=== PATIENT | male | born 1990 | race Caucasian/White ===

== ENCOUNTER 2019-11-15 10:01 | Emergency (ER) | payer BC, SELFPAY ==
[2019-11-15 10:31] VITALS: BP 122/74; PULSE 74; RESP 20; TEMP 36.9; O2SAT 100
--- NOTE | 2019-11-15 10:37 | ED.EXTPRO ---
HPI - Extremity Problem General Chief complaint: Extremity Problem,Nontraumatic Stated complaint: numbness in r/hand Time Seen by Provider: 11/15/19 10:37 Source: patient and RN notes reviewed History of Present Illness HPI Narrative: Patient is a 29-year-old male that presents the urgent care with complaints of right hand wrist pain and numbness intermittently to the pinky. 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 Patient states it started yesterday and he is used ibuprofen. States that the numbness has subsided. Patient denies any known trauma or injury. No other acute complaints. No acute distress noted. Patient read the plan of care. Related Data Home Medications Medication Instructions Recorded Confirmed No Home Medications 11/15/19 11/15/19 Allergies Allergy/AdvReac Type Severity Reaction Status Date / Time No Known Allergies Allergy Mild Verified 11/15/19 10:33 Review of Systems Review of Systems: Narrative: CONSTITUTIONAL: Denies fever, chills, or sweats. EYES: Denies visual changes, redness, or discharge. ENT: Denies rhinorrhea, congestion, sore throat, or otalgia. CARDIOVASCULAR: Denies chest pain, palpitations, or edema. RESPIRATORY: Denies cough or dyspnea. GASTROINTESTINAL: Denies abdominal pain, nausea, vomiting, or diarrhea. GENITOURINARY: Denies dysuria or hematuria. SKIN: Denies rash or itching. MUSCULOSKELETAL: Reports of right wrist pain and numbness intermittently to the right pinky finger NEUROLOGIC: Denies headache, numbness, or weakness. All other systems reviewed are negative, except as documented in HPI. PMFSH Social History Social History Smoking status: Former smoker Smoking end date: 10/12/11 Alcohol intake: current Comments At the time of my signature, I reviewed and agree with the nursing past medical, surgical, social, and family history. There is no relevant family history pertinent to the patient complaint. Exam Narrative: Exam Narrative: GENERAL: This is a well-nourished, well-developed patient, in no apparent distress. HEAD: normocephalic, atraumatic. EYES: PERRL. Sclera clear/white. Vision is grossly intact. EARS: External ears normal NOSE: External nose normal with no obvious nasal discharge THROAT: Mucous membranes moist NECK: Neck supple CARDIOVASCULAR: Regular rate and rhythm without murmurs, gallops, or rubs. RESPIRATORY: Clear to auscultation. Breath sounds equal bilaterally. No wheezes, rales, or rhonchi. SKIN: warm, intact with no suspicious lesions or rash, good texture and turgor. NEURO: awake, alert, and oriented to person, place and time. There were no obvious focal neurologic abnormalities. EXTREMITIES: Positive strong right radial pulse with no obvious deformity, ecchymosis, edema, erythema to the right wrist/hand. Capillary refill less than 2 seconds to right upper extremity. Tinel test negative. Range of motion within normal limits to right upper extremity. Course Vital Signs Vital signs: Vital Signs Temperature 98.4 F 11/15/19 10:31 Pulse Rate 74 11/15/19 10:31 Respiratory Rate 11/15/19 10:31 Blood Pressure 122/74 11/15/19 10:31 Pulse Oximetry 100 11/15/19 10:31 Temperature 98.4 F 11/15/19 10:31 Pulse Rate 74 11/15/19 10:31 Respiratory Rate 11/15/19 10:31 Blood Pressure 122/74 11/15/19 10:31 Pulse Oximetry 100 11/15/19 10:31 Reviewed MDM - Extremity (Nontraumatic) MDM Narrative Medical decision making narrative: Advised the patient to follow-up with the primary care doctor if symptoms persist. May need EMG study to determine nerve conduction. Symptoms are most likely related to ulnar nerve compression/dysfunction/entrapment. Continue to use ibuprofen as needed for pain. May obtain ulnar nerve splint for relief. Follow-up with PCP within 2 to 5 days or for worsening symptoms or failure to improve. Differential Diagnosis Differentia
== END 2019-11-15 11:02 | disposition home or self-care (01) ==
PROVIDERS: Emergency Provider Nurse Practitioner Family
DX: M25.531 Pain in right wrist (principal); Z85.828 Personal history of other malignant neoplasm of skin
CPT/HCPCS: 99211; G0463

== ENCOUNTER 2021-01-20 10:24 | Emergency (ER) | payer BC, SELFPAY ==
--- NOTE | ~2021-01-20 | XR_ITS ---
EXAMINATION: XR clavicle RT EXAM DATE: 01/20/2021 11:09 INDICATION: Initial encounter following injury, with pain of the right clavicle. TECHNIQUE: 2 frontal projections right clavicle with different degrees of tilt. There is no prior s tudy for comparison. FINDINGS: There is right clavicular midshaft acute closed posttraumatic fracture. There is complete shaft width superior displacement, and also probably some amount of foreshortening, bayoneting. No ot her acute findings. IMPRESSION: Right midclavicular shaft fracture with displacement, some retraction. Reviewed, dictated and finalized at location A. IMPRESSION: Right midclavicular shaft fracture with displacement, some retract ion.
[2021-01-20 10:52] VITALS: BP 120/79; PULSE 66; RESP 20; TEMP 36.8; O2SAT 100
[2021-01-20] MEDS: HYDROcodone/acetaminophen (*CRX) 5-325 MG TABLET 1 TAB PO (11:52)
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
== END 2021-01-20 12:39 | disposition home or self-care (01) ==
PROVIDERS: Emergency Provider Emergency Medicine; PCP Family Medicine
DX: S42.021A Displaced fracture of shaft of right clavicle, initial encounter for closed fracture (principal); Z87.891 Personal history of nicotine dependence; V00.841A Fall from standing electric scooter, initial encounter
CPT/HCPCS: 73000; 99284; A4565; A9270

== ENCOUNTER 2021-06-16 03:21 | Emergency (ER) | payer BC, SELFPAY ==
--- NOTE | ~2021-06-16 | XR_ITS ---
EXAMINATION: XR knee LT min 4V DATE: 06/16/2021 03:50 INDICATION: Anterior left knee pain and swelling post fall TECHNIQUE: Anteroposterior, 2 oblique and crosstable lateral views of the left knee were obtained COMPARISON: None. FINDINGS: There is nonuniform oblique lucency extending across the superolateral patella with smooth margins to the bones on either side of the lucency. The lucency measures less than 1 mm at its cephalad aspect increasing to 5 mm at its caudal aspect. The location and appearance favors a normal accessory apophy seal center of a bipartite patella rather than osseous fracture. The asymmetry to the lucency however suggests an avulsion fracture along the synchondrosis similar to a Salter-Ocasio I type fracture tracey ng a physis. Bone alignment is otherwise normal. No other lesions suspicious for fracture identified. Joint spaces are normal with small left knee joint effusion. IMPRESSION: 1. 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 Reviewed, dictated and finalized at location A.
[2021-06-16 03:27] VITALS: BP 139/69; PULSE 94; RESP 17; TEMP 37.3; O2SAT 99
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
[2021-06-16] MEDS: IBUPROFEN 600 MG TABLET PO (03:38)
== END 2021-06-16 04:33 | disposition home or self-care (01) ==
PROVIDERS: Emergency Provider Emergency Medicine; PCP Family Medicine
DX: S82.092A Other fracture of left patella, initial encounter for closed fracture (principal); F17.210 Nicotine dependence, cigarettes, uncomplicated; X58.XXXA Exposure to other specified factors, initial encounter
CPT/HCPCS: 73564; 99283; 99284; A9270

== ENCOUNTER 2022-09-20 02:44 | Emergency (ER) | payer SELFPAY ==
[2022-09-20 02:48] VITALS: BP 117/86; PULSE 83; RESP 16; TEMP 37.1; O2SAT 100
--- NOTE | 2022-09-20 04:03 | PC.NURSE ---
Patient seen walking out of the ED waiting room and outside with visitor by his side. Patient did not answer when asked if he was leaving.
== END 2022-09-20 04:12 | disposition left against medical advice (07) ==
PROVIDERS: PCP Family Medicine
DX: M79.661 Pain in right lower leg (principal)
CPT/HCPCS: 99199

== ENCOUNTER 2024-07-07 16:03 | Emergency (ER) | payer BC, SELFPAY ==
[2024-07-07 16:13] VITALS: BP 132/83; PULSE 72; RESP 18; TEMP 36.4; O2SAT 100
--- NOTE | 2024-07-07 16:14 | ED.WOUNDLAC ---
HPI - Wound/Laceration General Chief Complaint: Wound/Laceration Stated Complaint: thumb laceration Time Seen by Provider: 07/07/24 16:14 Source: patient Mode of arrival: ambulatory Limitations: no limitations History of Present Illness HPI narrative: Chavez is a 33-year-old male patient presenting to the clinic today with complaints of a right thumb laceration. He reports he was cutting a sweet potato prior to arrival and avulsed the skin on his distal thumb. Bleeding is controlled. Tetanus status is unknown Related Data Home Medications Medication Instructions Recorded Confirmed dextroamphetamine-amphetamine ER 15 mg PO DAILY 07/07/24 07/07/24 15 mg 24hr capsule,extend release Allergies Allergy/AdvReac Type Severity Reaction Status Date / Time No Known Allergies Allergy Mild Verified 07/07/24 16:34 Review of Systems Review of Systems: Pertinent positives per HPI. Patient denies any fever, chills, rash, headache, visual changes, dizziness, cough, runny nose, sore throat, shortness of breath, chest pain, palpitations, nausea, vomiting, diarrhea, constipation, abdominal pain, or any urinary issues. PMFSH Past Medical History Medical History Anxiety Clavicle fracture, shaft Depression Left patella fracture Skin cancer Surgical History Surgical History History of surgery Skin abnormality removed 2002 Social History Social History Smoking packs per day: 2 Smoking cigarettes per day: 40.0 Years smoked: 4 Smoking pack-years: 8.00 Tobacco type: cigarettes Smoking end date: 10/12/13 Alcohol intake: current Alcohol use details: 4 per month Substance use: never Substance use type: does not use Living arrangements: with family Gender identity (if verbalized by the patient): Male Comments At the time of my signature, I reviewed and agree with the nursing past medical, surgical, social, and family history. There is no relevant family history pertinent to the patient complaint. Exam Narrative: General: Well-developed, well nourished, in no apparent distress Head: Normocephalic, atraumatic. Cardio: Regular rate and rhythm, s1 and s2 normal, no murmur appreciated. Resp: Clear to auscultation bilaterally, no rhonchi, rales, wheezing or rubs. Integumentary: [place], warm, and dry, 1 cm x 1 cm skin avulsion to the lateral distal thumb without nail involvement Course Course Emergency Course: Portions of this record may have been created with voice recognition software. Level of Care: Express Care Visit Vital Signs Vital signs: Vital Signs Temperature 36.4 C 07/07/24 16:13 Pulse Rate 72 07/07/24 16:13 Respiratory Rate 18 07/07/24 16:13 Blood Pressure 132/83 07/07/24 16:13 Pulse Oximetry 100 07/07/24 16:13 Oxygen Delivery Room Air 07/07/24 16:13 Temperature 36.4 C 07/07/24 16:13 Pulse Rate 72 07/07/24 16:13 Respiratory Rate 18 07/07/24 16:13 Blood Pressure 132/83 07/07/24 16:13 Pulse Oximetry 100 07/07/24 16:13 Oxygen Delivery Room Air 07/07/24 16:13 Vital signs reviewed Procedures Laceration Laceration 1: Date: 07/07/24 Site: hand (right thumb) Side (If applicable): right Size (cm): 1 Description: clean and other (skin avulsion) Depth: simple, single layer Local Anesthetic: lidocaine 1% Pre-repair: wound explored and irrigated ====== Skin Level ====== ====== Subcutaneous Layer ====== ====== Muscle Layer ====== ====== Tendon Layer ====== Dressing: Patient has a 1 cm x 1 cm skin avulsion to the right lateral distal thumb without nail involvement. Wound was cleansed using normal saline and antiseptic wound wash. After cleaning 0.5 mL of lidocaine was injected into
[2024-07-07] MEDS: TETANUS,DIPHTHERIA,AC PERTUSSIS ADULT (0.5 ML) BOOSTRIX IM (16:26)
[2024-07-07] MEDS: CELLULOSE OXIDIZED 2 x 3 INCH 1 PKT XX (16:31)
[2024-07-07] MEDS: LIDOCAINE HCL 1% LOCAL INJ 2 ML AMPUL INFILTRATE (16:31)
== END 2024-07-07 16:48 | disposition home or self-care (01) ==
PROVIDERS: Emergency Provider Nurse Practitioner Family; PCP Family Medicine
DX: S61.001A Unspecified open wound of right thumb without damage to nail, initial encounter (principal); W45.8XXA Other foreign body or object entering through skin, initial encounter; Z23 Encounter for immunization; Z87.891 Personal history of nicotine dependence; Z85.828 Personal history of other malignant neoplasm of skin
CPT/HCPCS: 90471; 90715; 99212; G0463